=== PATIENT | male | born 2000 | race African-American/Black ===

== ENCOUNTER 2025-08-12 12:57 | Emergency (ER) | payer MEDICAID ==
[~2025-08-12] VITALS: Ht 177.8 cm; Wt 79.0 kg
[2025-08-12 13:00] VITALS: O2SAT 100
[2025-08-12] MEDS: SODIUM CHLORIDE 0.9% 1,000 ML IV ONE (13:54)
[2025-08-12] MEDS: MORPHINE SULFATE 4 MG/ML INJ (FOR IV/IM USE) IV ONE (13:54)
[2025-08-12 14:36] LABS: BASOPHILS % 1.3 % (0.0-2.0); EOSINOPHILS % 0.8 % (0.0-5.0); HEMATOCRIT. 43.2 % (42.0-52.0); HEMOGLOBIN. 14.0 g/dL (14.0-18.0); LYMPHOCYTES % 19.2 % (20.0-50.0); MEAN PLATELET VOLUME 9.5 fl (7.4-10.4); MONOCYTES % 9.6 % (2.0-8.0); NEUTROPHILS % 69.1 % (40.0-76.0); PLATELET 282 x1000/uL (130-400); RED BLOOD CELL COUNT 5.09 mill/uL (4.7-6.1); RED CELL DISTRIBUTION WIDTH 12.2 % (11.6-14.6)
[2025-08-12 14:58] LABS: CREATININE 1.0 mg/dL (0.6-1.3); UREA NITROGEN BLOOD 10 mg/dL (9-23)
[2025-08-12 15:00] LABS: ASPARTATE AMINOTRANSFERASE 23 IU/L (<34); BILIRUBIN DIRECT 0.2 mg/dL (<=3.0); BILIRUBIN TOTAL 0.6 mg/dL (0.1-1.0)
[2025-08-12 15:01] LABS: PROTEIN TOTAL 7.4 g/dL (6.0-8.3)
[2025-08-12 15:21] VITALS: BP 117/85; PULSE 70; RESP 12; TEMP 37.1; O2SAT 100
== END 2025-08-12 15:22 | disposition home or self-care (01) ==
LOC: ER 12:57
DX: T20.20XA Burn of second degree of head, face, and neck, unspecified site, initial encounter (principal); Z79.899 Other long term (current) drug therapy; X58.XXXA Exposure to other specified factors, initial encounter; Y93.89 Activity, other specified; Y92.89 Other specified places as the place of occurrence of the external cause; Y99.8 Other external cause status
CPT/HCPCS: 99283; 96374; 96361; 80076; 80048; 83735; 85025; 36415; J2270; J7030